=== PATIENT | male | born 1960 | race Caucasian/White ===

== ENCOUNTER 2016-11-01 13:42 | Emergency (ER) | payer OTHER ==
[2016-11-01 13:49] VITALS: TEMP 98.4
--- NOTE | 2016-11-01 13:58 | CPEKG ---
Heart Rate: 68 RR Interval: 882 P-R Interval: 188 QRSD Interval: 86 QT Interval: 372 QTC Interval: 396 P [place]: -27 QRS [place]: -41 T Wave [place]: 9 EKG Severity - ABNORMAL ECG - EKG Impression: SINUS RHYTHM EKG Impression: LEFT ANTERIOR FASCICULAR BLOCK EKG Impression: ANTERIOR INFARCT, AGE INDETERMINATE Electronically Signed By: Tanvir Ashby 02-Nov-2016 06:47:47
[2016-11-01 14:13] LABS: HEMATOCRIT 46.1 % (40.0-51.0); HEMOGLOBIN 15.9 g/dL (13.7-17.5); MEAN CELL HEMOGLOBIN 29.1 pg (27.9-34.1); MEAN CELL HEMOGLOBIN CONCENTR. 34.5 g/dL (32.4-36.7); MEAN CELL VOLUME 84.3 fL (81.5-99.8); RED BLOOD CELL COUNT 5.47 10^6/uL (4.40-6.38); RED CELL DISTRIBUTION WIDTH 13.2 % (11.5-15.2)
[2016-11-01 14:29] LABS: ANION GAP 12 mEq/L (8-16); CALCIUM 9.6 mg/dL (8.5-10.4); CARBON DIOXIDE 24 mEq/l (22-31); CHLORIDE 103 mEq/L (97-110); CREATININE 1.1 mg/dL (0.7-1.3); GLOMERULAR FILTRATION RATE > 60; GLUCOSE 96 mg/dL (70-100); SODIUM 139 mEq/L (134-144)
[2016-11-01] MEDS ORDERED: ASPIRIN 81 MG CHEWABLE TAB ONE (14:33)
[2016-11-01 14:39] LABS: ALBUMIN 4.6 g/dL (3.5-5.0); BILIRUBIN,TOTAL 0.9 mg/dL (0.1-1.4); BILIRUBIN-CONJUGATED 0.4 mg/dL (0.0-0.5); BILIRUBIN-UNCONJUGATED 0.5 mg/dL (0.0-1.1); TOTAL PROTEIN 7.9 g/dL (6.3-8.2)
[2016-11-01 14:40] LABS: TROPONIN I < 0.012 ng/mL (0-0.034)
[2016-11-01] MEDS ORDERED: ASPIRIN 81 MG CHEWABLE TAB PO ONE (14:44)
--- NOTE | 2016-11-01 15:24 | EDPHY ---
HPI/HX/ROS/PE/MDM Narrative: CHIEF COMPLAINT: Indigestion. HISTORY OF PRESENT ILLNESS: This patient is a 56 year old male arriving today with his complaining of intermittent indigestion and midsternal soreness onset three days ago. He reports he has had a history of indigestion for the past five years, intermittently treated with Tums. These episodes have lasted longer and have not been relieved with Tums. He states his current symptoms include burping, heartburn, and midsternal soreness as well as occasional soreness in both upper arms. He reports has been unable to fully resolve these symptoms with Tums over the last three days, and that they seem to be brought on by eating or stress. He states his discomfort is not exacerbated by activities, and denies any radiating pain. He denies history of blood clots. 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 No fever, chills, shortness of breath, palpitations, vomiting, diarrhea, urinary complaints, headache, lightheadedness. Last stres test 3-5 years ago. REVIEW OF SYSTEMS: Aside from elements discussed in the HPI, a comprehensive 10-point review of systems was reviewed and is negative. PAST MEDICAL HISTORY: Sleep apnea. GERD. Hyperlipidemia (Simvastatin). SOCIAL HISTORY: Never smoked. Father had early CAD. at bedside. 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 VITAL SIGNS: Reviewed by me GENERAL: Well-developed, well-nourished, resting comfortably in no respiratory distress. HEENT: Atraumatic. Eyes: No icterus, no injection. Mouth: moist mucous membranes. No erythema or lesions. Neck: supple with no adenopathy. LUNGS: Clear to auscultation bilaterally, no wheezes, rhonchi or rales. CARDIAC: Regular rate and rhythm, no rubs, murmurs or gallops. No tenderness to palpation, no crepitus. ABDOMEN: Soft, nontender, nondistended, bowel sounds normal. BACK: No CVA tenderness. EXTREMITIES: No trauma. No edema. Range of motion is normal throughout. NEURO: Alert and oriented, grossly nonfocal. SKIN: Cool and clammy, no rash. PSYCHIATRIC: Normal mentation, no agitation. Portions of this note were transcribed by a medical billing supervisor. I personally performed a history, physical exam, medical decision making, and confirmed accuracy of information the transcribed note. ED Course: This patient is a 56 year old male presenting with a 4 day history of indigestion and midsternal discomfort. Plan for labs including CBC, CHEM, Troponin, Lipase, and H. Pylori. Plan to administer 325mg PO Aspirin and GI cocktail for symptom relief. Of note, patient is slightly diaphoretic and has multiple risk factors for CAD. The 12 lead EKG was interpreted by myself. See hard copy and/or "tracemaster" electronic copy for interpretation. Sinus rhythm, rate 68. Left anterior fascicular block. Labs unremarkable. Neg troponin. Declined cxr. I recommended admission given his symptoms and family cardiac history. Long discussion with patient and . GI cocktail administred and patient reports improvement in symptoms. The patient would prefer to go home this evening. Understands risk of ACS, CT, arrhythmia, sudden , CHF, etc. I discussed the importance of following up promptly with cardiology this week. I discussed case with Dr. Madden. Patient to call [facility] in morning to schedule further eval. Return precautions discussed. The patient is comfortable with this plan. MDM: After history and physical examination, the differential for patients symptoms complex was considered, including but not limited to, myocardial ischemia, acute coronary syndrome, espohageal spasm, indigestion, GERD, pulmonary embolus , chest wall pain, pleural inflammation and pulmonary infectious causes. - Data Points Laboratory Results: Laboratory Results 11/01/16 14:00 11/01/16 14:00 Medications Given: Discontinued Medications Al Hydroxide/Mg Hydroxide (Maalox Susp) 30 ml PO ONCE ONE Stop: 11/01/16 15:31 Last Admin: 11/01/16 15:43 Dose: 30 ml Aspirin (Aspirin) 324 mg PO EDNOW ONE Stop: 11/01/16 14:45 Last Admin: 11/01/16 15:19 Dose: 324 mg Hyoscyamine Sulfate (Levsin, Hyomax-Sl) 0.25 mg PO ONCE ONE Stop: 11/01/16 15:31 Last Admin: 11/01/16 15:42 Dose: 0.25 mg Lidocaine (Lidocaine 2% Viscous) 15 ml PO ONCE ONE Stop: 11/01/16 15:31 Last Admin: 11/01/16 15:42 Dose: 15 ml General Time Seen by Provider: 11/01/16 14:21 Initial Vital Signs: Initial Vital Signs Temperature (C) 36.9 C 11/01/16 13:47 Heart Rate 69 11/01/16 13:47 Respiratory Rate 16 11/01/16 13:47 Blood Pressure 130/83 H 11/01/16 13:47 O2 Sat (%) 96 11/01/16 13:47 O2 Delivery Mode Room Air Allergies/Adverse Reactions: No Known Allergies Allergy (Unverified 11/01/16 13:45) Home Medications: Medication Instructions Recorded Coq-10 11/01/16 Simvastatin 11/01/16 ZYRTEC 11/01/16 Departure - Departure Disposition: Home, Routine, Self-Care Clinical Impression: Indigestion, Chest discomfort Condition: Good Instructions: Chest Pain (ED) Additional Instructions: 1. We spoke with Dr. Madden at [facility], please call tomorrow for an appointment to follow up. 2. Return to the emergency department immediately for increased chest discomfort , shortness of breath, palpitations, lightheadedness, fainting, or other worsening of condition. Referrals: Milton Rojas MD [Primary Care Provider] - As per Instructions Arslan Madden MD [Medical Doctor] - As per Instructions Report Scribed for: Mónica Hercules Report Scribed by: Shelly Dewey Date of Report: 11/01/16 Time of Report: 16:29
[2016-11-01] MEDS ORDERED: HYOSCYAMINE SULFATE 0.125 MG TAB PO ONE (15:30)
[2016-11-01] MEDS ORDERED: LIDOCAINE 2% VISCOUS 15 ML UDCUP PO ONE (15:30)
[2016-11-01] MEDS ORDERED: MAG HYDROX/AL HYDROX/SIMETH 30 ML UDCUP PO ONE (15:30)
[2016-11-01 16:15] VITALS: BP 131/80; PULSE 68; RESP 16; O2SAT 97
== END 2016-11-01 16:41 | disposition home or self-care (01) ==
DX: K30 Functional dyspepsia (principal)